=== PATIENT | female | born 1980 | race African-American/Black ===

== ENCOUNTER 2018-05-07 07:28 | Emergency (ER) | payer MEDICAID, OTHER ==
[~2018-05-07] VITALS: Ht 167.6 cm; Wt 61.0 kg
[2018-05-07] MEDS ORDERED: HALOPERIDOL LACTATE 5MG/ML VIAL IM STA (08:04)
[2018-05-07] MEDS ORDERED: LORAZEPAM 2MG/ML CPJ IM STA (08:04)
[2018-05-07 08:30] LABS: BASOPHILS % 2.1 % (0.0-2.0); HEMATOCRIT. 39.7 % (36.0-48.0); HEMOGLOBIN. 13.4 g/dL (12.0-16.0); LYMPHOCYTES % 24.8 % (20.0-50.0); MEAN CORPUSCULAR HEMOGLOBIN 31.3 pg (28.0-32.0); MEAN CORPUSCULAR VOLUME 92.5 fL (81.0-99.0); MEAN PLATELET VOLUME 7.9 fl (7.4-10.4); MONOCYTES % 8.6 % (2.0-8.0); NEUTROPHILS % 58.5 % (40.0-76.0); PLATELET 216 x1000/uL (130-400); RED BLOOD CELL COUNT 4.29 mill/uL (4.2-5.4); RED CELL DISTRIBUTION WIDTH 11.9 % (11.6-14.6)
[2018-05-07 08:38] LABS: CHLORIDE 104 mEq/L (98-107)
[2018-05-07 08:39] LABS: HCG SCREEN NEGATIVE
[2018-05-07 08:42] LABS: ETHANOL BLOOD < 10 mg/dL
[2018-05-07 12:11] LABS: CLARITY URINE CLEAR (CLEAR); COLOR URINE YELLOW (YELLOW); KETONES URINE NEGATIVE (NEGATIVE); LEUKOCYTE ESTERASE URINE NEGATIVE (NEGATIVE); NITRITE URINE NEGATIVE (NEGATIVE); OCCULT BLOOD URINE NEGATIVE (NEGATIVE); PH URINE 7.5 (4.5-8.0); PROTEIN URINE NEGATIVE (NEGATIVE); SPECIFIC GRAVITY URINE 1.017 (1.005-1.030); UROBILINOGEN URINE 0.2 E.U./dL (0.2-1.0)
[2018-05-07] MEDS ORDERED: OLANZAPINE 10 MG/VIAL IM ONE (12:30)
[2018-05-07 12:40] LABS: *COCAINE SCREEN URINE NEGATIVE (NEGATIVE)
[2018-05-07 12:41] LABS: *AMPHETAMINES SCREEN URINE NEGATIVE (NEGATIVE); *BENZODIAZEPINES SCREEN URINE NEGATIVE (NEGATIVE); CANNABINOID URINE SCREEN NEGATIVE (NEGATIVE); METHADONE URINE SCREEN NEGATIVE (NEGATIVE); OPIATES URINE SCREEN NEGATIVE (NEGATIVE); PHENCYCLIDINE URINE SCREEN NEGATIVE (NEGATIVE)
[2018-05-07 12:42] LABS: *BARBITURATES SCREEN URINE NEGATIVE (NEGATIVE)
[2018-05-07] MEDS ORDERED: LORAZEPAM 2MG/ML CPJ IM PRN (21:45)
[2018-05-08] MEDS ORDERED: OLANZAPINE 10MG TABLET PO ONE (15:07)
[2018-05-08] MEDS ORDERED: OLANZAPINE 10MG TABLET PO SCH (15:15)
[2018-05-08] MEDS ORDERED: OLANZAPINE 10MG TABLET ODT PO ONE (22:30)
[2018-05-09] MEDS ORDERED: LORAZEPAM 1MG TABLET PO ONE (01:45)
[2018-05-10 00:59] VITALS: BP 136/84
== END 2018-05-10 01:53 | disposition home or self-care (01) ==
LOC: ER 08:14
DX: F91.8 Other conduct disorders (principal); R45.1 Restlessness and agitation; R45.851 Suicidal ideations; Z78.1 Physical restraint status; Z75.1 Person awaiting admission to adequate facility elsewhere
CPT/HCPCS: 36415; 80048; 80305; 80307; 80329; 81003; 84703; 85025; 96372; 99284; G0482; J1630; J2060; J3490; Z7610